=== PATIENT | male | born 1970 | race Two or more races ===

== ENCOUNTER 2021-06-21 02:35 | Emergency (ER) | payer BC, OTHER ==
[~2021-06-21] VITALS: Ht 175.3 cm; Wt 104.3 kg
[2021-06-21] MEDS ORDERED: FLUORESCEIN SOD OPTH TEST STRIP EACHEYE ONE ×2 (03:30→03:45)
[2021-06-21] MEDS ORDERED: TETRACAINE HCL 0.5% OPTH(EYE) SOLN 4ML EACHEYE ONE ×2 (03:30→03:45)
[2021-06-21 03:42] VITALS: BP 145/94
[2021-06-21] MEDS ORDERED: SULF10SO15 OP (04:03)
[2021-06-21] MEDS ORDERED: HYDR-4798 PO (04:03)
== END 2021-06-21 04:57 | disposition home or self-care (01) ==
LOC: ER 02:35
DX: H16.9 Unspecified keratitis (principal)

== ENCOUNTER 2022-01-21 21:24 | Emergency (ER) | payer BC ==
[~2022-01-21] VITALS: Ht 175.3 cm; Wt 93.2 kg
[~2022-01-21 21:24] MED LIST: HYDR-4798 PO; SULF10SO15 OP
[2022-01-21 21:40] VITALS: BP 146/92
== END 2022-01-22 01:09 | disposition left against medical advice (07) ==
LOC: ER 21:26
DX: H57.13 Ocular pain, bilateral (principal); Z53.21 Procedure and treatment not carried out due to patient leaving prior to being seen by health care provider

== ENCOUNTER 2022-08-16 10:04 | Emergency (ER) | payer BC ==
[~2022-08-16] VITALS: Ht 175.3 cm; Wt 95.1 kg
[2022-08-16] MEDS ORDERED: FLUORESCEIN SOD OPTH TEST STRIP OP ONE (11:00)
[2022-08-16] MEDS ORDERED: TETRACAINE HCL 0.5% OPTH(EYE) SOLN 4ML EACHEYE ONE (11:00)
[2022-08-16] MEDS ORDERED: CIPR0.3S67 OP (11:17)
[2022-08-16 11:31] VITALS: BP 130/84
== END 2022-08-16 11:38 | disposition home or self-care (01) ==
LOC: ER 10:04
DX: S05.01XA Injury of conjunctiva and corneal abrasion without foreign body, right eye, initial encounter (principal); Z79.899 Other long term (current) drug therapy; W45.8XXA Other foreign body or object entering through skin, initial encounter; Y93.89 Activity, other specified; Y92.89 Other specified places as the place of occurrence of the external cause; Y99.8 Other external cause status
CPT/HCPCS: 65220; 65222